=== PATIENT | male | born 1985 | race Caucasian/White ===

== ENCOUNTER 2019-04-13 15:00 | Emergency (ER) | payer SELFPAY ==
[2019-04-13] MEDS ORDERED: HYDROCODONE/APAP 5/325 MG TAB ONE (15:50)
[2019-04-13] MEDS ORDERED: DIAZEPAM 5 MG TABLET ONE (15:51)
[2019-04-13] MEDS ORDERED: AMLODIPINE 5 MG TAB ONE ×2 (15:51→16:05)
--- NOTE | 2019-04-13 16:46 | EDPHYS ---
Physician Documentation [facility] Name: Gael Lee Age: 34 yrs Sex: Male : 1985 Arrival Date: 04/13/2019 Time: 15:04 Bed 19 Private MD: None, None ED Physician Kirill Sheppard HPI: 04/13 15:24 This 34 yrs old Male presents to ER via Ambulatory with complaints of Back snw Pain. 15:24 The patient presents with pain that is acute. The symptoms are located in the low back. snw Onset: The symptoms/episode began/occurred suddenly, 3 day(s) ago, and became worse and became persistent. The pain does not radiate. Associated signs and symptoms: The patient has no apparent associated signs or symptoms. The problem was sustained from unknown cause. Modifying factors: The patient symptoms are alleviated by specific position, lying down, the patient symptoms are aggravated by any movement, bending, lifting, walking. Severity of symptoms: At their worst the symptoms were moderate. The patient has not experienced similar symptoms in the past. The patient has not recently seen a physician. Historical: - Allergies: 15:09 Bentyl; la1 - PMHx: 15:09 Asthma; Hypertension; la1 - Immunization history:: Adult Immunizations up to date. - Social history:: Smoking status: Patient uses tobacco products, smokes one pack cigarettes per day. - Ebola Screening: : No symptoms or risks identified at this time. ROS: 15:23 Constitutional: Negative for fever, chills, and weight loss, Eyes: Negative for injury, snw pain, redness, and discharge, ENT: Negative for injury, pain, and discharge, Neck: Negative for injury, pain, and swelling, Cardiovascular: Negative for chest pain, palpitations, and edema, Respiratory: Negative for shortness of breath, cough, wheezing, and pleuritic chest pain, Abdomen/GI: Negative for abdominal pain, nausea, vomiting, diarrhea, and constipation, : Negative for injury, bleeding, discharge, and swelling, MS/Extremity: Negative for injury and deformity, Skin: Negative for injury, rash, and discoloration, Neuro: Negative for headache, weakness, numbness, tingling, and seizure. 15:23 Back: Positive for decreased range of motion, pain at rest, pain with movement, Negative for injury or acute deformity, radiated pain. Exam: 15:21 Constitutional: This is a well developed, well nourished patient who is awake, alert, snw and in no acute distress. Head/Face: Normocephalic, atraumatic. Eyes: Pupils equal round and reactive to light, extra-ocular motions intact. Lids and lashes normal. Conjunctiva and sclera are non-icteric and not injected. Cornea within normal limits. Periorbital areas with no swelling, redness, or edema. ENT: Nares patent. No nasal discharge, no septal abnormalities noted. Tympanic membranes are normal and external auditory canals are clear. Oropharynx with no redness, swelling, or masses, exudates, or evidence of obstruction, uvula midline. Mucous membranes moist. Neck: Trachea midline, no thyromegaly or masses palpated, and no cervical lymphadenopathy. Supple, full range of motion without nuchal rigidity, or vertebral point tenderness. No Meningismus. Chest/axilla: Normal chest wall appearance and motion. Nontender with no deformity. No lesions are appreciated. Cardiovascular: Regular rate and rhythm with a normal S1 and S2. No gallops, murmurs, or rubs. Normal PMI, no JVD. No pulse deficits. Respiratory: Lungs have equal breath sounds bilaterally, clear to auscultation and percussion. No rales, rhonchi or wheezes noted. No increased work of breathing, no retractions or nasal flaring. Abdomen/GI: Soft, non-tender, with normal bowel sounds. No distension or tympany. No guarding or rebound. No evidence of tenderness throughout. Back: No spinal tenderness. No costovertebral tenderness. painful range of motion. Skin: Warm, dry with normal turgor. Normal color with no rashes, no lesions, and no evidence of cellulitis. MS/ Extremity: Pulses equal, no cyanosis. Neurovascular intact. Full, normal range of motion. Neuro: Awake and alert, GCS 15, oriented to person, place, time, and situation. Cranial nerves II-XII grossly intact. Motor strength 5/5 in all extremities. Sensory grossly intact. Cerebellar exam normal. Normal gait. Psych: Awake, alert, with orientation to person, place and time. Behavior, mood, and affect are within normal limits. Vital Signs: 15:09 BP 178 / 101; Pulse 78; Resp 16; Temp 98.4; Pulse Ox 100% on R/A; Weight 122.47 kg; la1 Height 5 ft. 8 in. (172.72 cm); 17:25 BP 157 / 86; Pulse 75; Resp 18; Temp 97.9; Pulse Ox 100% on R/A; ph 15:09 Body Mass Index 41.05 (122.47 kg, 172.72 cm) la1 MDM: 15:14 Patient medically screened. snw 15:26 Data reviewed: vital signs, nurses notes. Data interpreted: Pulse oximetry: on room air snw is 100 %. Interpretation: normal. Counseling: I had a detailed discussion with the patient and/or guardian regarding: the historical points, exam findings, and any diagnostic results supporting the discharge/admit diagnosis, the presence of at least one elevated blood pressure reading (>120/80) during this emergency department visit, radiology results, the need for outpatient follow up, to return to the emergency department if symptoms worsen or persist or if there are any questions or concerns that arise at home, smoking cessation. Special discussion: I have referred the patient to see his PCP for further evaluation of high blood pressure. Based on the history and exam findings, there is no indication for further emergent testing or inpatient evaluation. I discussed with the patient/guardian the need to see the back specialist for further evaluation of the symptoms. I discussed with the patient/guardian the need to see the primary care provider for further evaluation of the symptoms. 04/13 15:17 Order name: Lumbar Spine (3 Views) XRAY; Complete Time: 17:20 snw Administered Medications: 16:00 Drug: Valium 5 mg Route: PO; ph 16:30 Follow up: Response: No adverse reaction; Pain is decreased ph 16:00 Drug: [place] 5 mg-325 mg 1 tabs Route: PO; ph 16:30 Follow up: Response: No adverse reaction; Pain is decreased; RASS: Alert and Calm (0) ph 16:00 Drug: Norvasc 5 mg Route: PO; ph 17:00 Follow up: Response: No adverse reaction; Blood pressure is lowered ph 17:10 Drug: TORadol 30 mg Route: IM; Site: right deltoid; mg2 17:15 Follow up: Response: No adverse reaction; Pain is decreased ph Disposition: 04/14 06:37 Co-signature as Attending Physician, Kirill Sheppard MD I agree with the assessment and guy plan of care. Disposition: 04/13/19 16:45 Discharged to Home. Impression: Low back pain, Essential (primary) hypertension. - Condition is Stable. - Discharge Instructions: Back Pain, Adult, Hypertension, Cryotherapy, DASH Eating Plan, Heat Therapy, Managing Your Hypertension, Form - Blood Pressure Record Sheet. - Prescriptions for Norvasc 5 mg Oral Tablet - take 1 tablet by ORAL route once daily; 20 tablet. Diclofenac Sodium 75 mg Oral Tablet Sustained Release - take 1 tablet by ORAL route 2 times per day; 30 tablet. orphenadrine citrate 100 mg Oral Tablet Sustained Release - take 1 tablet by ORAL route 2 times per day As needed; 20 tablet. - Work release form, Medication Reconciliation Form, Thank You Letter, Antibiotic Education, Prescription Opioid Use form. - Follow up: Private Physician; When: 2 - 3 days; Reason: Recheck today's complaints, Continuance of care, Re-evaluation by your physician. Follow up: Emergency Department; When: As needed; Reason: Worsening of condition. Signatures: Dispatcher [employer] Kirill Kwong MD MD cha Therrien, Shelly, GREASE MACHINE WORKER-C GREASE MACHINE WORKER-[employer] Luis Alberto Fernandez RN RN la1 Christin Lopez RN RN ph Dakotah Bright RN RN mg2 Corrections: (The following items were deleted from the chart) 04/13 17:23 16:45 04/13/2019 16:45 Discharged to Home. Impression: Low back pain; Essential mg2 (primary) hypertension. Condition is Stable. Discharge Instructions: Back Pain, Adult, Hypertension, Cryotherapy, DASH Eating Plan, Heat Therapy, Managing Your Hypertension, Form - Blood Pressure Record Sheet. Prescriptions for Norvasc 5 mg Oral Tablet - take 1 tablet by ORAL route once daily; 20 tablet, Diclofenac Sodium 75 mg Oral Tablet Sustained Release - take 1 tablet by ORAL route 2 times per day; 30 tablet, orphenadrine citrate 100 mg Oral Tablet Sustained Release - take 1 tablet by ORAL route 2 times per day As needed; 20 tablet. and Forms are Work release form, Medication Reconciliation Form, Thank You Letter, Antibiotic Education, Prescription Opioid Use. Follow up: Private Physician; When: 2 - 3 days; Reason: Recheck today's complaints, Continuance of care, Re-evaluation by your physician. Follow up: Emergency Department; When: As needed; Reason: Worsening of condition. snw
--- NOTE | 2019-04-13 16:46 | ER ---
Nurse's Notes [facility] Name: Gael Lee Age: 34 yrs Sex: Male : 1985 Arrival Date: 04/13/2019 Time: 15:04 Bed 19 Private MD: None, None Diagnosis: Low back pain;Essential (primary) hypertension Presentation: 04/13 15:09 Presenting complaint: Patient states: lower back pain for the last three days. la1 Transition of care: patient was not received from another setting of care. Onset of symptoms was April 13, 2019. Risk Assessment: Do you want to hurt yourself or someone else? Patient reports no desire to harm self or others. Initial Sepsis Screen: Does the patient meet any 2 criteria? No. Patient's initial sepsis screen is negative. Does the patient have a suspected source of infection? No. Patient's initial sepsis screen is negative. Care prior to arrival: None. 15:09 Method Of Arrival: Ambulatory la1 15:09 Acuity: JOCELIN 4 la1 Historical: - Allergies: 15:09 Bentyl; la1 - PMHx: 15:09 Asthma; Hypertension; la1 - Immunization history:: Adult Immunizations up to date. - Social history:: Smoking status: Patient uses tobacco products, smokes one pack cigarettes per day. - Ebola Screening: : No symptoms or risks identified at this time. Screenin:25 Abuse screen: Denies threats or abuse. Denies injuries from another. Nutritional ph screening: No deficits noted. Tuberculosis screening: No symptoms or risk factors identified. Fall Risk None identified. Assessment: 16:00 General: Appears in no apparent distress. uncomfortable, well groomed, Behavior is ph calm, cooperative, appropriate for age, Denies fever, feeling ill. Pain: Complains of pain in low back area. Neuro: Level of Consciousness is awake, alert, obeys commands, Oriented to person, place, time, situation. Cardiovascular: Capillary refill < 3 seconds in bilateral fingers Patient's skin is warm and dry. Respiratory: Airway is patent Respiratory effort is even, unlabored, Respiratory pattern is regular, symmetrical. Derm: Skin is intact, is healthy with good turgor, Skin is pink, warm \T\ dry. Musculoskeletal: Circulation, motion, and sensation intact. Range of motion: intact in all extremities. 17:00 Reassessment: Patient appears in no apparent distress at this time. Patient and/or ph family updated on plan of care and expected duration. Pain level reassessed. Patient is alert, oriented x 3, equal unlabored respirations, skin warm/dry/pink. Vital Signs: 15:09 BP 178 / 101; Pulse 78; Resp 16; Temp 98.4; Pulse Ox 100% on R/A; Weight 122.47 kg; la1 Height 5 ft. 8 in. (172.72 cm); 17:25 BP 157 / 86; Pulse 75; Resp 18; Temp 97.9; Pulse Ox 100% on R/A; ph 15:09 Body Mass Index 41.05 (122.47 kg, 172.72 cm) la1 ED Course: 15:04 Patient arrived in ED. mr 15:04 None, None is Private Physician. mr 15:09 Triage completed. la1 15:10 Arm band placed on left wrist. la1 15:12 Christin Lopez, ASHLEY is Primary Nurse. ph 15:13 Gayatri Nash FNP-C is PHCP. snw 15:13 Kirill Sheppard MD is Attending Physician. snw 15:54 Lumbar Spine (3 Views) XRAY In Process Unspecified. EDMS 16:28 Patient has correct armband on for positive identification. Bed in low position. Call ph light in reach. Side rails up X 1. Pulse ox on. NIBP on. Door closed. Noise minimized. Warm blanket given. 16:28 No provider procedures requiring assistance completed. Patient did not have IV access ph during this emergency room visit. Administered Medications: 16:00 Drug: Valium 5 mg Route: PO; ph 16:30 Follow up: Response: No adverse reaction; Pain is decreased ph 16:00 Drug: [place] 5 mg-325 mg 1 tabs Route: PO; ph 16:30 Follow up: Response: No adverse reaction; Pain is decreased; RASS: Alert and Calm (0) ph 16:00 Drug: Norvasc 5 mg Route: PO; ph 17:00 Follow up: Response: No adverse reaction; Blood pressure is lowered ph 17:10 Drug: TORadol 30 mg Route: IM; Site: right deltoid; mg2 17:15 Follow up: Response: No adverse reaction; Pain is decreased ph Outcome: 16:45 Discharge ordered by . snw 17:23 Patient left the ED. mg2 17:23 Discharged to home ambulatory, with significant other. ph 17:23 Condition: good 17:23 Discharge instructions given to patient, Instructed on discharge instructions, follow up and referral plans. medication usage, Demonstrated understanding of instructions, follow-up care, medications, Prescriptions given X 3. Signatures: Dispatcher [employer] EDNV Gayatri Nash, MISSAELC [employer] AND AIR DELIVERY SPECIALIST-Christine TysonAndressa Rebecca, Luis Alberto RN RN la1 Christin Lopez, RN RN ph Dakotah Bright, RN RN mg2
--- NOTE | 2019-04-13 17:02 | RAD REPORT ---
EXAM DESCRIPTION: RAD - Lumbar Spine 3 Views - 04/13/2019 3:54 pm CLINICAL HISTORY: Back pain COMPARISON: None. FINDINGS: A three-view lumbar spine examination was performed. Lumbar bodies are normal in height an d alignment. No fracture or acute bony process seen. No disc space narrowing. No other significant fi ndings. No pars defects identified. IMPRESSION: Negative Lumbar Spine examination.
[2019-04-13] MEDS ORDERED: KETOROLAC 30 MG/ML INJ ONE (17:11)
[2019-04-13 17:38] VITALS: BP 178/101; TEMP 98.4; O2SAT 100
== END 2019-04-13 17:23 | disposition home or self-care (01) ==
LOC: ER 15:00
DX: I10 Essential (primary) hypertension (principal); F17.210 Nicotine dependence, cigarettes, uncomplicated; Z88.8 Allergy status to other drugs, medicaments and biological substances
CPT/HCPCS: 72100; 96372; 99284